=== PATIENT | male | born 1990 | race African-American/Black ===

== ENCOUNTER 2017-10-15 01:52 | Observation (INO) | payer SELFPAY ==
[2017-10-15] VITALS (9 sets, daily range): BP systolic 121–158; BP diastolic 72–95; PULSE 88–120; TEMP 98.4
[~2017-10-15] VITALS: Ht 165.1 cm; Wt 62.1 kg
[2017-10-15 02:22] LABS: BASO % 0.5 % (0.0-2.0); EOS # 0.2 (0.0-0.7); EOS % 2.2 % (0-4.0); GRAN # 3.7 (1.4-6.5); GRAN % 44.4 % (42.2-75.2); HEMATOCRIT 42.7 % (42.0-52.0); LYMPH # 3.5 (1.2-3.4); LYMPH % 42.3 % (20.0-51.0); MEAN CELL VOLUME 85 fl (80.0-100.0); MEAN CORPUSCULAR HEMOGLOBIN 30 pg (27.0-31.0); MEAN CORPUSCULAR HGB CONC 35 g/dl (33.0-37.0); MEAN PLATELET VOLUME 9.5 fl (7.4-10.4); MONO # 0.9 (0.1-0.6); MONO % 10.5 % (1.7-9.3); PLATELET COUNT 288 K/mm3 (130-400); REDCELL DISTRIBUTION WIDTH-CV 13.3 % (11.5-14.5)
[2017-10-15 02:32] LABS: CALCIUM 9.2 mg/dL (8.4-10.2); CREATININE, serum 0.94 mg/dL (0.66-1.25); POTASSIUM 3.5 mmol/L (3.4-5.0)
[2017-10-15] MEDS ORDERED: NORCO 325 MG-7.1 TAB PO ×2 (09:56→09:58)
[2017-10-15] MEDS ORDERED: ROXICODONE 55 MG/TAB PO (09:56)
== END 2017-10-15 14:05 | disposition home or self-care (01) ==
LOC: COL.ER 01:52 → SURG 03:30
PROVIDERS: Emergency Medicine
DX: S63.125A Dislocation of interphalangeal joint of left thumb, initial encounter (principal); S63.075A Dislocation of distal end of left ulna, initial encounter
CPT/HCPCS: G0378; J0690; J1100; J2370; J2405; J2704; J3010; J7030; J7120